=== PATIENT | female | born 1995 | race Hispanic/Latino ===

== ENCOUNTER 2019-07-27 09:00 | Outpatient (CLI) | payer MEDICAID ==
--- NOTE | 2019-07-28 08:24 | ULT ---
PELVIC ULTRASOUND: 07/27/19 Ultrasonography of the pelvis was performed. Documentary images were reviewed. The uterus appears normal and measures 7.9 x 5.3 x 3.3 cm. An IUD is in place and is in normal positi on. There is no sign of endometrial thickening. The right ovary is 4.4 cm long and the left is 2.7 cm long. There is some generous sized follicles in each, some measuring up to 1.2 cm in size. No free fluid was seen. Blood flow is present in each ova ry. IMPRESSION: 1. No acute pelvic findings. 2. IUD placement is normal. POS: HOME
== END 2019-07-27 09:01 | disposition home or self-care (01) ==
LOC: BURULT 09:00
PROVIDERS: ATTEND Nurse Practitioner Family
DX: T83.32XA Displacement of intrauterine contraceptive device, initial encounter (principal); Z97.5 Presence of (intrauterine) contraceptive device
CPT/HCPCS: 76856

== ENCOUNTER 2022-02-02 21:30 | Emergency (ER) | payer MEDICAID, OTHER, SELFPAY ==
[2022-02-02 22:23] LABS: Hemoglobin 13.6 g/dL (12.0-16.0); Mean Corpuscular HGB CONC 34.1 g/dL (32.0-36.0); Mean Corpuscular Hemoglobin 31.9 pg (27.0-31.0); Mean Corpuscular Volume 93.6 fL (78.0-98.0); Mean Platelet Volume 14.1 fL (7.4-10.4); Platelet Count 168 thou/uL (130-400); RBC Distribution Width 12.9 % (11.5-14.5); Red Blood Cell (RBC) Count 4.26 mill/uL (4.20-5.40)
[2022-02-02] MEDS ORDERED: Morphine 4 MG/ML VIAL ONE (22:24)
[2022-02-02] MEDS ORDERED: diphenhydrAMINE 50 MG/ML VIAL ONE (22:25)
[2022-02-02 22:31] LABS: INR-International Normal Ratio 1.1; Prothrombin Time 14.1 sec (12.0-14.7)
[2022-02-02 22:32] LABS: PTT 34.8 sec (22.9-36.1)
[2022-02-02 22:35] LABS: ALT (SGPT) 13 U/L (8-55); AST (SGOT) 11 U/L (5-34); Albumin 4.2 g/dL (3.5-5.0); Alkaline Phosphatase 30 U/L (40-110); Anion Gap 14 mmol/L (10-20); BUN (Urea Nitrogen) 7 mg/dL (7.0-18.7); Bilirubin, Total 0.3 mg/dL (0.2-1.2); CK (CPK) 54 U/L (29-168); Calc. Creatinine Clearance 0 mL/min (70-130); Carbon Dioxide 24 mmol/L (22-29); Chloride 108 mmol/L (98-107); Globulin 2.6 g/dL (2.4-3.5); Glucose 93 mg/dL (70-105); Potassium 3.7 mmol/L (3.5-5.1); Protein, Total 6.8 g/dL (6.0-8.3); Sodium 142 mmol/L (136-145)
[2022-02-02 22:45] LABS: BHCG - Serum Negative (NEGATIVE); Pregs Control Background? CLEAR/WHITE (CLR/WHITE); Pregs Control Bar Appear? YES (CONTROL BAR)
[2022-02-02 22:54] LABS: #Basophils 0.1 thou/uL (0.0-0.2); #Eosinphils 0.2 thou/uL (0.0-0.7); #Lymphocytes 2.8 thou/uL (1.20-3.40); #Monocytes 0.5 thou/uL (0.11-0.59); #Neutrophils 4.4 thou/uL (1.40-6.50); %Basophils 0.9 % (0.0-1.0); %Eosinophils 3.1 % (0.0-10.0); %Lymphocytes 34.6 % (21.0-51.0); %Monocytes 6.8 % (0.0-10.0); %Neutrophils 54.6 % (42.0-75.0)
[2022-02-02 23:00] LABS: Large Platelets SLIGHT; MDiff Complete? YES; Platelet Morphology Comment Appears Adequate; RBC Morphology Normal
[2022-02-03] MEDS ORDERED: HYDROcodone/Acetaminophen 5/325 mg Tablet ONE (00:19)
[2022-02-03 02:43] LABS: INR-International Normal Ratio 1.1; Mean Corpuscular HGB CONC 34.1 g/dL (32.0-36.0); Mean Corpuscular Hemoglobin 31.7 pg (27.0-31.0); Mean Corpuscular Volume 92.8 fL (78.0-98.0); Platelet Count 167 thou/uL (130-400); Prothrombin Time 14.4 sec (12.0-14.7); RBC Distribution Width 12.6 % (11.5-14.5); Red Blood Cell (RBC) Count 4.41 mill/uL (4.20-5.40); White Blood Cell (WBC) Count 8.4 thou/uL (4.8-10.8)
[2022-02-03 02:44] LABS: PTT 35.3 sec (22.9-36.1)
[2022-02-03 02:53] LABS: ALT (SGPT) 12 U/L (8-55); AST (SGOT) 11 U/L (5-34); Albumin 4.2 g/dL (3.5-5.0); Alkaline Phosphatase 31 U/L (40-110); Anion Gap 13 mmol/L (10-20); BUN (Urea Nitrogen) 8 mg/dL (7.0-18.7); Bilirubin, Total 0.4 mg/dL (0.2-1.2); CK (CPK) 52 U/L (29-168); Calc. Creatinine Clearance 0 mL/min (70-130); Carbon Dioxide 26 mmol/L (22-29); Chloride 107 mmol/L (98-107); Globulin 2.6 g/dL (2.4-3.5); Glucose 94 mg/dL (70-105); Potassium 3.7 mmol/L (3.5-5.1); Protein, Total 6.8 g/dL (6.0-8.3); Sodium 142 mmol/L (136-145)
== END 2022-02-03 04:27 | disposition home or self-care (01) ==
LOC: BURERS 21:30
DX: T63.091A Toxic effect of venom of other snake, accidental (unintentional), initial encounter (principal); M79.89 Other specified soft tissue disorders; F17.210 Nicotine dependence, cigarettes, uncomplicated
CPT/HCPCS: 80053; 82550; 84703; 85025; 85027; 85384; 85610; 85730; 96374; 96375; J1200; J2270